=== PATIENT | male | born 1990 | race Caucasian/White ===

== ENCOUNTER 2024-10-16 01:29 | Emergency (ER) | payer BC ==
[~2024-10-16] VITALS: Ht 167.6 cm; Wt 80.0 kg
[2024-10-16 01:34] VITALS: O2SAT 100
[2024-10-16 01:35] VITALS: BP 118/60; PULSE 82; RESP 16; TEMP 36.8; O2SAT 100
[2024-10-16] MEDS: DEXAMETHASONE 10 MG/ML VIAL PO ONE (01:45)
[2024-10-16] MEDS ORDERED: AMOX-494 MT (04:03)
== END 2024-10-16 02:34 | disposition home or self-care (01) ==
LOC: ER 01:29
DX: J02.0 Streptococcal pharyngitis (principal)
CPT/HCPCS: 99283; 87430; J1100